=== PATIENT | male | born 1955 | race Hispanic/Latino ===

== ENCOUNTER 2019-02-06 11:15 | Emergency (ER) | payer SELFPAY ==
[2019-02-06 11:41] LABS: Protime INR 1.06
[2019-02-06 11:43] LABS: Absolute Lymphocytes (CBC) 1.5 K/uL (0.7-4.9); Absolute Monocytes 0.4 K/uL (0.1-1.3); Absolute Neutrophil 2.3 K/uL (1.8-8.0); Basophils % 0.9 % (0-1.3); Eosinophils % 1.1 % (0-4.4); Hematocrit 42.2 % (39.6-49.0); Lymphocytes % 35.4 % (15.3-44.8); MPV 8.9 fL (7.6-11.3); Monocytes % 8.2 % (3.3-12.3); RBC Red Blood Cell Count 4.82 M/uL (4.33-5.43)
--- NOTE | 2019-02-06 11:46 | RAD REPORT ---
EXAM DESCRIPTION: CT - CTHCSPWOC - 02/06/2019 11:38 am CLINICAL HISTORY: Head and neck pain, numbness and tingling, stroke-like symptoms COMPARISON: None. TECHNIQUE: Axial 5 mm thick images of the head were obtained. Axial 2 mm thick images of the cervic al spine were obtained with sagittal and coronal reconstruction images generated and reviewed. All CT scans are performed using dose optimization technique as appropriate and may include automated exposure control or mA/KV adjustment according to patient size. FINDINGS: No intracranial hemorrhage, mass, edema or acute intracranial finding. No suspicion for acute infarct ion. No extra-axial fluid collections. Mastoid air cells and paranasal sinuses are clear. No globe or orbit abnormality seen. Mild atrophy and chronic ischemic changes are evident. Ventricles are normal in size. Cervical body height and alignment are normal. C5-6 disc space narrowing is present with endplate spu rring and bilateral bony foraminal encroachment. No fracture or acute bony abnormality. Central canal detail is inherently limited. No paraspinal mass or hematoma. IMPRESSION: No acute intracranial finding identifiable. Atrophy and chronic ischemic changes are pre sent. Chronic ischemic changes can mask nonhemorrhagic acute infarction. MR brain followup can be obtained if there is ongoing concern for acute ischemia. Cervical spine degenerative changes are present most notable at C5-6. No fracture or acute finding se en.
[2019-02-06] MEDS ORDERED: NA CHLORIDE 0.9% 1,000 ML ONE (11:48)
[2019-02-06] MEDS ORDERED: FOLIC ACID 5 MG/ML VIAL ONE (11:48)
[2019-02-06] MEDS ORDERED: THIAMINE 200 MG/2 ML INJ ONE (11:53)
[2019-02-06 11:59] LABS: ALT/SGPT 24 U/L (12-78); AST/SGOT 18 U/L (15-37); Alkaline Phosphatase 78 U/L (45-117); BUN Blood Urea Nitrogen 14 mg/dL (7-18); Bicarbonate 28 mmol/L (21-32); Bilirubin Direct 0.2 mg/dL (0-0.2); Bilirubin Total 0.9 mg/dL (0.2-1.0); C-Reactive Protein < 2.90 mg/L (<3.00); Glucose Level 98 mg/dL (74-106); NT PRO-BNP 16 pg/mL (<125); Potassium 4.1 mmol/L (3.5-5.1); Protein, Total 7.4 g/dL (6.4-8.2); Sodium Level 139 mmol/L (136-145); Troponin (Emerg Dept Use Only) < 0.02 ng/mL (0.0-0.045)
--- NOTE | 2019-02-06 12:18 | RAD REPORT ---
EXAM DESCRIPTION: MRI - Brain Wo Cont - 02/06/2019 12:00 pm CLINICAL HISTORY: Left numbness/dizziness COMPARISON: CT February 06, 2019 TECHNIQUE: Axial, sagittal, and coronal magnetic images of the brain were obtained. Contrast was not requested FINDINGS: A 4.5 centimeter area of abnormal signal is present within the left cerebellum. Diffusion-weighted/ADC mapping does not reveal evidence of acute infarction. The ventricles are normal caliber. An extra-axial fluid collection is not present The sinuses and mastoids are clear. IMPRESSION: 4.5 centimeter area of abnormal signal within the left cerebellum may represent an old i nfarction.
--- NOTE | 2019-02-06 12:38 | RAD REPORT ---
EXAM DESCRIPTION: USCarotid Artery Bilateral02/06/2019 12:21 pm CLINICAL HISTORY: Numbness COMPARISON: None FINDINGS: The velocity of the right internal carotid artery equals 53 cm/sec. The right ICA/CCA rati o .8 The velocity of the left internal carotid artery equals 71 cm/sec. The left ICA/CCA ratio .9 Mild plaque is present within the carotid arteries. The vertebral arteries demonstrate antegrade flow IMPRESSION: Mild plaque within the carotid arteries without evidence of a hemodynamically significan t stenosis NASCET criteria used. Mild 0-49% stenosis Moderate 50-69% stenosis Severe 70-99% stenosis
--- NOTE | 2019-02-06 12:43 | RAD REPORT ---
EXAM DESCRIPTION: [place] Single View02/06/2019 12:32 pm CLINICAL HISTORY: cough COMPARISON: 2017 FINDINGS: The lungs appear clear of acute infiltrate. The heart is normal size IMPRESSION: No acute abnormalities displayed
--- NOTE | 2019-02-06 13:10 | ER ---
Nurse's Notes [facility] Name: Loc Serrano Jr Age: 63 yrs Sex: Male : 1955 Arrival Date: 02/06/2019 Time: 11:17 Bed 20 Private MD: Ruth Bush H Diagnosis: Radiculopathy, cervical region;Radiculopathy, lumbar region Presentation: 02/06 11:23 Presenting complaint: Patient states: INTERMITTENT LUE/LLE NUMBNESS AND ANXIETY SINCE bp Y/D, RESOLVED WITH MOVEMENT. Transition of care: patient was not received from another setting of care. Onset of symptoms was February 05, 2019. Risk Assessment: Do you want to hurt yourself or someone else? Patient reports no desire to harm self or others. Initial Sepsis Screen: Does the patient meet any 2 criteria? No. Patient's initial sepsis screen is negative. Does the patient have a suspected source of infection? No. Patient's initial sepsis screen is negative. Care prior to arrival: None. 11:23 Method Of Arrival: Ambulatory bp 11:23 Acuity: NIK 3 bp Triage Assessment: 11:25 General: Appears in no apparent distress. comfortable, slender, Behavior is bp cooperative, appropriate for age, anxious. Pain: Denies pain. EENT: No deficits noted. Neuro: Level of Consciousness is awake, alert, obeys commands, Oriented to person, place, time, situation, Appropriate for age Office Clerk are equal bilaterally Moves all extremities. Full function Gait is steady, Speech is normal, Facial symmetry appears normal, Numbness in left arm and left leg. Cardiovascular: Rhythm is sinus rhythm. Respiratory: Airway is patent Respiratory effort is even, unlabored, Respiratory pattern is regular, symmetrical. GI: No signs and/or symptoms were reported involving the gastrointestinal system. : No signs and/or symptoms were reported regarding the genitourinary system. Derm: No deficits noted. Musculoskeletal: Circulation, motion, and sensation intact. Range of motion: intact in all extremities. Historical: - Allergies: 11:25 No Known Allergies; bp - Home Meds: 11:25 None [Active]; bp - PMHx: 11:25 GERD; High Cholesterol; bp - Immunization history:: Adult Immunizations up to date. - Social history:: Smoking status: Patient/guardian denies using tobacco. - Ebola Screening: : No symptoms or risks identified at this time. - Family history:: not pertinent. Screenin:27 Abuse screen: Denies threats or abuse. Denies injuries from another. Nutritional bp screening: No deficits noted. Tuberculosis screening: No symptoms or risk factors identified. Fall Risk None identified. Assessment: 11:27 General: SEE TRIAGE NOTES. NO OBJECTIVE NEURO FINDINGS. bp 11:35 Reassessment: PT TO CT WITH BUSINESS UNIT MANAGER. bp 12:35 Reassessment: PT RETURNED FROM RADIOLOGY. bp 13:24 Reassessment: PT D/C HOME AMBULATORY WITH FAMILY, DX WITH RADICULOPATHY. bp Vital Signs: 11:25 BP 145 / 98; Pulse 71; Resp 18; Temp 97.8; Pulse Ox 99% ; Weight 89.81 kg; Height 6 ft. bp 2 in. (187.96 cm); 12:39 BP 131 / 99; Pulse 54; Resp 16; Pulse Ox 97% ; bp 13:24 BP 125 / 87; Pulse 47; Resp 11; Temp 97.8; Pulse Ox 100% ; bp 11:25 Body Mass Index 25.42 (89.81 kg, 187.96 cm) bp NIH Stroke Scale Scores: 12:03 NIHSS Score: 0 [facility] ED Course: 11:17 Patient arrived in ED. as 11:17 Ruth Bush DO is Private Physician. as 11:18 Abdi Hollingsworth, BRISEIDA is Primary Nurse. bp 11:18 Gt Das MD is Attending Physician. swetha 11:24 Triage completed. bp 11:25 Arm band placed on. bp 11:27 Patient has correct armband on for positive identification. Bed in low position. Call bp light in reach. Side rails up X2. Adult w/ patient. 11:30 Initial lab(s) drawn, by me, sent to lab. Inserted saline lock: 20 gauge in right hj antecubital area, using aseptic technique. Blood collected. 11:34 Troponin (emerg Dept Use Only) Sent. hj 11:34 PT-INR Sent. hj 11:34 NT PRO-BNP Sent. hj 11:34 Magnesium Sent. hj 11:34 LFT's Sent. hj 11:34 CBC with Diff Sent. hj 11:34 Basic Metabolic Panel Sent. hj 11:35 Sed Rate Sent. hj 11:35 CRP Sent. hj 11:35 Basic Metabolic Panel Sent. hj 11:38 CT Head C Spine In Process Unspecified. EDMS 11:45 Patient moved to MRI via wheelchair. em2 12:00 MRI completed. Patient tolerated well. Patient moved back from MRI. em2 12:21 US Carotid Artery Bilateral In Process Unspecified. EDMS 12:29 XRAY Chest (1 view) In Process Unspecified. EDMS 12:44 EKG done, by electrical service technician. reviewed by Gt Das MD. at1 13:01 Ruth Bush DO is Referral Physician. swetha 13:02 Deshaun Das MD is Referral Physician. swetha 13:25 No provider procedures requiring assistance completed. IV discontinued, intact, bp bleeding controlled, No redness/swelling at site. Pressure dressing applied. Administered Medications: 12:35 Drug: NS 0.9% 1000 ml Route: IV; Rate: 1 bolus; Site: right antecubital; bp 13:23 Follow up: IV Status: Completed infusion; IV Intake: 1000ml bp 12:35 Drug: foLIC Acid 1 mg Route: IVPB; Site: right antecubital; bp 12:35 Drug: Thiamine 100 mg Route: IV; Rate: bolus; Site: right antecubital; bp 13:15 Drug: Aspirin Chewable Tablet 324 mg Route: PO; bp 13:23 Follow up: Response: No adverse reaction bp Intake: 13:23 IV: 1000ml; Total: 1000ml. bp Outcome: 13:10 Discharge ordered by . swetha 13:25 Discharged to home ambulatory, with family. bp 13:25 Condition: stable 13:25 Discharge instructions given to patient, Instructed on discharge instructions, follow up and referral plans. medication usage, Demonstrated understanding of instructions, follow-up care, medications, Prescriptions given X 2. 13:26 Patient left the ED. bp NIH Stroke Scale - NIH Stroke Score Date: 02/06/2019 Time: 12:03 Total Score = 0 1a. Level of Consciousness (LOC) - 0(Alert) 1b. Level of Consciousness (LOC) (Year \T\ Age) - 0(Both) 1c. LOC Commands (Open \T\ Closes Eyes/Mud Mill Tender) - 0(Both) 2. Best Gaze (Lateral Gaze Paresis) - 0(Normal) 3. Visual Field Loss - 0(No visual loss) 4. Facial Palsy - 0(Normal) 5a. Left Arm: Motor (10-second hold) - 0(No drift) 5b. Right Arm: Motor (10-second hold) - 0(No drift) 6a. Left Leg: Motor (5-second hold - always test supine) - 0(No drift) 6b. Right Leg: Motor (5-second hold - always test supine) - 0(No drift) 7. Limb Ataxia (finger/nose \T\ heel/waters - test with eyes open) - 0(Absent) 8. Sensory Loss (pinprick arms/legs/face) - 0(Normal) 9. Best Language: Aphasia (description/naming/reading) - 0(No aphasia) 10. Dysarthria (speech clarity - read or repeat words) - 0(Normal) 11. Extinction and Inattention (visual/tactile/auditory/spatial/personal) - 0(No abnormality) Initials: swetha Signatures: Dispatcher [employer] EDMS Gt Das MD MD cha Martinez, Amelia as Montes, Enrique em2 Keysha Harrison, financial sales professional EKG Tat1 Ulysses Corrales, Abdi Hernandes RN, BRISEIDA RN bp Corrections: (The following items were deleted from the chart) 12:01 12:00 In radiology for Brain Wo Cont. EDMS em2
--- NOTE | 2019-02-06 13:10 | EDPHYS ---
Physician Documentation [facility] Name: Loc Serrano Jr Age: 63 yrs Sex: Male : 1955 Arrival Date: 02/06/2019 Time: 11:17 Bed 20 Private MD: Ruth Bush H ED Physician Gt Das HPI: 02/06 11:59 This 63 yrs old Male presents to ER via Ambulatory with complaints of Numbness swetha Of Arm. 11:59 The patient or guardian complains of pain, that is acute. The complaints affect the swetha left bicep, dorsal aspect of left forearm, left tricep and palmar aspect of left forearm. Historical: - Allergies: 11:25 No Known Allergies; bp - Home Meds: 11:25 None [Active]; bp - PMHx: 11:25 GERD; High Cholesterol; bp - Immunization history:: Adult Immunizations up to date. - Social history:: Smoking status: Patient/guardian denies using tobacco. - Ebola Screening: : No symptoms or risks identified at this time. - Family history:: not pertinent. ROS: 12:01 Constitutional: Negative for fever, chills, and weight loss, Eyes: Negative for injury, swetha pain, redness, and discharge, ENT: Negative for injury, pain, and discharge, Neck: Negative for injury, pain, and swelling, Cardiovascular: Negative for chest pain, palpitations, and edema, Respiratory: Negative for shortness of breath, cough, wheezing, and pleuritic chest pain, Abdomen/GI: Negative for abdominal pain, nausea, vomiting, diarrhea, and constipation, Back: Negative for injury and pain, : Negative for injury, bleeding, discharge, and swelling, Skin: Negative for injury, rash, and discoloration, Psych: Negative for depression, anxiety, suicide ideation, homicidal ideation, and hallucinations, Allergy/Immunology: Negative for hives, rash, and allergies, Endocrine: Negative for neck swelling, polydipsia, polyuria, polyphagia, and marked weight changes, Hematologic/Lymphatic: Negative for swollen nodes, abnormal bleeding, and unusual bruising. 12:01 MS/extremity: Positive for tingling, of the left arm and left leg. Exam: 12:01 Radiologist reports: nad swetha 12:01 Constitutional: This is a well developed, well nourished patient who is awake, alert, and in no acute distress. Head/Face: Normocephalic, atraumatic. Eyes: Pupils equal round and reactive to light, extra-ocular motions intact. Lids and lashes normal. Conjunctiva and sclera are non-icteric and not injected. Cornea within normal limits. Periorbital areas with no swelling, redness, or edema. ENT: Nares patent. No nasal discharge, no septal abnormalities noted. Tympanic membranes are normal and external auditory canals are clear. Oropharynx with no redness, swelling, or masses, exudates, or evidence of obstruction, uvula midline. Mucous membranes moist. Neck: Trachea midline, no thyromegaly or masses palpated, and no cervical lymphadenopathy. Supple, full range of motion without nuchal rigidity, or vertebral point tenderness. No Meningismus. Chest/axilla: Normal chest wall appearance and motion. Nontender with no deformity. No lesions are appreciated. Cardiovascular: Regular rate and rhythm with a normal S1 and S2. No gallops, murmurs, or rubs. Normal PMI, no JVD. No pulse deficits. Respiratory: Lungs have equal breath sounds bilaterally, clear to auscultation and percussion. No rales, rhonchi or wheezes noted. No increased work of breathing, no retractions or nasal flaring. Abdomen/GI: Soft, non-tender, with normal bowel sounds. No distension or tympany. No guarding or rebound. No evidence of tenderness throughout. Back: No spinal tenderness. No costovertebral tenderness. Full range of motion. Male : Normal genitalia with no discharge or lesions. Skin: Warm, dry with normal turgor. Normal color with no rashes, no lesions, and no evidence of cellulitis. MS/ Extremity: Pulses equal, no cyanosis. Neurovascular intact. Full, normal range of motion. Neuro: Awake and alert, GCS 15, oriented to person, place, time, and situation. Cranial nerves II-XII grossly intact. Motor strength 5/5 in all extremities. Sensory grossly intact. Cerebellar exam normal. Normal gait. Psych: Awake, alert, with orientation to person, place and time. Behavior, mood, and affect are within normal limits. Vital Signs: 11:25 BP 145 / 98; Pulse 71; Resp 18; Temp 97.8; Pulse Ox 99% ; Weight 89.81 kg; Height 6 ft. bp 2 in. (187.96 cm); 12:39 BP 131 / 99; Pulse 54; Resp 16; Pulse Ox 97% ; bp 13:24 BP 125 / 87; Pulse 47; Resp 11; Temp 97.8; Pulse Ox 100% ; bp 11:25 Body Mass Index 25.42 (89.81 kg, 187.96 cm) bp NIH Stroke Scale Scores: 12:03 NIHSS Score: 0 swetha MDM: 11:18 Patient medically screened. [facility] 12:03 Data reviewed: vital signs, nurses notes, lab test result(s), EKG, radiologic studies, [facility] CT scan, doppler, MRI, plain films. 02/06 11:20 Order name: Basic Metabolic Panel [facility] 02/06 11:20 Order name: CBC with Diff; Complete Time: 12:59 [facility] 02/06 11:20 Order name: LFT's; Complete Time: 12:59 [facility] 02/06 11:20 Order name: Magnesium; Complete Time: 12:59 [facility] 02/06 11:20 Order name: NT PRO-BNP; Complete Time: 12:59 [facility] 02/06 11:20 Order name: PT-INR; Complete Time: 11:47 [facility] 02/06 11:20 Order name: Troponin (emerg Dept Use Only); Complete Time: 13:00 [facility] 02/06 11:20 Order name: XRAY Chest (1 view); Complete Time: 13:00 [facility] 02/06 11:20 Order name: CT Head C Spine; Complete Time: 11:47 [facility] 02/06 11:20 Order name: CRP; Complete Time: 13:00 [facility] 02/06 11:20 Order name: Sed Rate; Complete Time: 13:00 [facility] 02/06 11:21 Order name: Basic Metabolic Panel; Complete Time: 12:59 EDME 02/06 11:35 Order name: US Carotid Artery Bilateral; Complete Time: 13:00 [facility] 02/06 11:20 Order name: EKG; Complete Time: 11:21 [facility] 02/06 11:20 Order name: Cardiac monitoring; Complete Time: 11:23 [facility] 02/06 11:20 Order name: EKG - Nurse/Tech; Complete Time: 12:41 [facility] 02/06 11:20 Order name: IV Saline Lock; Complete Time: 11:31 [facility] 02/06 11:20 Order name: Labs collected and sent; Complete Time: 11: [facility] 02/06 11:20 Order name: O2 Per Protocol; Complete Time: 11: [facility] 02/06 11:20 Order name: O2 Sat Monitoring; Complete Time: 11: [facility] 02/06 11:20 Order name: Urine Dipstick-Ancillary (obtain specimen); Complete Time: 13:10 [facility] 02/06 11:59 Order name: Brain Wo Cont; Complete Time: 13:00 EDMS Administered Medications: 12:35 Drug: NS 0.9% 1000 ml Route: IV; Rate: 1 bolus; Site: right antecubital; bp 13:23 Follow up: IV Status: Completed infusion; IV Intake: 1000ml bp 12:35 Drug: foLIC Acid 1 mg Route: IVPB; Site: right antecubital; bp 12:35 Drug: Thiamine 100 mg Route: IV; Rate: bolus; Site: right antecubital; bp 13:15 Drug: Aspirin Chewable Tablet 324 mg Route: PO; bp 13:23 Follow up: Response: No adverse reaction bp Disposition: 02/06/19 13:10 Discharged to Home. Impression: Radiculopathy, cervical region, Radiculopathy, lumbar region. - Condition is Stable. - Discharge Instructions: Cervical Radiculopathy, Lumbosacral Radiculopathy, Aspirin and Your Heart, Cervical Radiculopathy, [id number], Radicular Pain. - Prescriptions for Folic Acid 1 mg Oral Tablet - take 1 tablet by ORAL route once daily; 30 tablet. - Medication Reconciliation Form, Thank You Letter, Antibiotic Education, Prescription Opioid Use form. - Follow up: Ruth Bush DO; When: 2 - 3 days; Reason: Recheck today's complaints, Continuance of care, Re-evaluation by your physician. Follow up: Deshaun Das MD; When: 2 - 3 days; Reason: Recheck today's complaints, Continuance of care, Re-evaluation by your physician. - Problem is new. - Symptoms have improved. NIH Stroke Scale - NIH Stroke Score Date: 02/06/2019 Time: 12:03 Total Score = 0 1a. Level of Consciousness (LOC) - 0(Alert) 1b. Level of Consciousness (LOC) (Year \T\ Age) - 0(Both) 1c. LOC Commands (Open \T\ Closes Eyes/Paste Plant Supervisor) - 0(Both) 2. Best Gaze (Lateral Gaze Paresis) - 0(Normal) 3. Visual Field Loss - 0(No visual loss) 4. Facial Palsy - 0(Normal) 5a. Left Arm: Motor (10-second hold) - 0(No drift) 5b. Right Arm: Motor (10-second hold) - 0(No drift) 6a. Left Leg: Motor (5-second hold - always test supine) - 0(No drift) 6b. Right Leg: Motor (5-second hold - always test supine) - 0(No drift) 7. Limb Ataxia (finger/nose \T\ heel/waters - test with eyes open) - 0(Absent) 8. Sensory Loss (pinprick arms/legs/face) - 0(Normal) 9. Best Language: Aphasia (description/naming/reading) - 0(No aphasia) 10. Dysarthria (speech clarity - read or repeat words) - 0(Normal) 11. Extinction and Inattention (visual/tactile/auditory/spatial/personal) - 0(No abnormality) Initials: swetha Signatures: Dispatcher [employer] [facility] Gt Das MD MD cha Peltier, Brian, RN RN bp Corrections: (The following items were deleted from the chart) 11:59 11:36 MR STROKE PROTOCOL+MRI.RAD.MINISTERIO ordered. [facility] 13:26 13:10 02/06/2019 13:10 Discharged to Home. Impression: Radiculopathy, cervical bp region; Radiculopathy, lumbar region. Condition is Stable. Forms are Medication Reconciliation Form, Thank You Letter, Antibiotic Education, Prescription Opioid Use. Follow up: Ruth Bush; When: 2 - 3 days; Reason: Recheck today's complaints, Continuance of care, Re-evaluation by your physician. Follow up: Deshaun Das; When: 2 - 3 days; Reason: Recheck today's complaints, Continuance of care, Re-evaluation by your physician. Problem is new. Symptoms have improved. swetha
[2019-02-06] MEDS ORDERED: ASPIRIN 81 MG CHEWABLE TABLET ONE (13:25)
--- NOTE | 2019-02-06 18:24 | EKG ---
Test Date: 2019-02-06 Test Time: 12:44:09 Safety Pin Assembling Machine Operator: IVETTE MEASUREMENT RESULTS: Intervals: Rate: 50 WI: 158 QRSD: 114 QT: 428 QTc: 390 [place]: P: 57 WI: 158 QRS: 50 T: 51 INTERPRETIVE STATEMENTS: Sinus bradycardia Otherwise normal ECG Compared to ECG 06/03/2017 05:22:28 Sinus rhythm no longer present Electronically Signed On 02-06-19 18:23:23 CDT by Scout Teresa
== END 2019-02-06 13:26 | disposition home or self-care (01) ==
LOC: ER 11:15
DX: M54.12 Radiculopathy, cervical region (principal); M54.16 Radiculopathy, lumbar region
CPT/HCPCS: 36415; 70450; 70551; 71045; 72125; 80048; 80076; 83735; 83880; 84484; 85025; 85610; 85652; 86140; 93005; 93880; 96361; 96374; 96375; 99285; J3411; J7030

== ENCOUNTER 2019-11-10 10:54 | Emergency (ER) | payer SELFPAY ==
[2019-11-10 11:43] LABS: Absolute Lymphocytes (CBC) 1.4 K/uL (0.7-4.9); Basophils % 0.7 % (0-1.3); Hematocrit 41.1 % (39.6-49.0); Lymphocytes % 31.4 % (15.3-44.8); MPV 8.7 fL (7.6-11.3); RBC Red Blood Cell Count 4.56 M/uL (4.33-5.43)
[2019-11-10 11:47] LABS: Protime INR 0.94
--- NOTE | 2019-11-10 12:15 | RAD REPORT ---
EXAM DESCRIPTION: CT - Head C Spine Mpr Wo Con - 11/10/2019 11:45 am CLINICAL HISTORY: Numbness COMPARISON: January 2019 TECHNIQUE: Computed axial tomography of the head and cervical spine was obtained. Sagittal and coronal reconstruction was performed. All CT scans are performed using dose optimization technique as appropriate and may include automated exposure control or mA/KV adjustment according to patient size. FINDINGS: An intracranial bleed is not seen. The ventricles are normal in caliber. An extra-axial fl uid collection is not noted.Fluid within the visualized sinuses and mastoids is not seen A cervical fracture is not visualized. No dislocation is noted. Spondylosis C5-6 results in moderate left foraminal stenosis IMPRESSION: No acute intracranial abnormality is seen. A cervical fracture is not visualized. Spondylosis C5-6 results in moderate left foraminal stenosis If the patient continues to have symptoms to suggest intracranial /spinal cord pathology then MRI wou ld be recommended
--- NOTE | 2019-11-10 12:56 | RAD REPORT ---
EXAM DESCRIPTION: [facility] Single View11/10/2019 12:10 pm CLINICAL HISTORY: Numbness COMPARISON: January 2019 FINDINGS: The lungs appear clear of acute infiltrate. The heart is normal size IMPRESSION: No acute abnormalities displayed
[2019-11-10 13:01] LABS: ALT/SGPT 35 U/L (12-78); AST/SGOT 31 U/L (15-37); Albumin 3.5 g/dL (3.4-5.0); Alkaline Phosphatase 66 U/L (45-117); BUN Blood Urea Nitrogen 17 mg/dL (7-18); Bicarbonate 25 mmol/L (21-32); Bilirubin Direct < 0.1 mg/dL (0-0.2); Bilirubin Total 0.3 mg/dL (0.2-1.0); Glucose Level 92 mg/dL (74-106); NT PRO-BNP 25 pg/mL (<125); Potassium 4.1 mmol/L (3.5-5.1); Protein, Total 6.6 g/dL (6.4-8.2); Sodium Level 139 mmol/L (136-145); Troponin (Emerg Dept Use Only) < 0.02 ng/mL (0.0-0.045)
--- NOTE | 2019-11-10 13:16 | EDPHYS ---
Physician Documentation [facility] Name: Loc Serrano Jr Age: 64 yrs Sex: Male : 1955 Arrival Date: 11/10/2019 Time: 10:55 Bed 7 Private MD: ED Physician Sathya Red HPI: 11/10 11:49 This 64 yrs old Male presents to ER via Ambulatory with complaints of Numbness.pm1 11:49 The patient's problem is reported as paresthesias, in left upper extremity, in left pm1 lower extremity, in left side of face. Onset: The symptoms/episode began/occurred 1 month(s) ago. Duration: The episodes are intermittent. The symptoms are alleviated by movement and working. The symptoms are aggravated by rest and when he is not working. Associated signs and symptoms: Pertinent positives: Yesterday with bilateral blurred vision that lasted for 1 second, Pertinent negatives: chest pain, dizziness, headache, shortness of breath. Severity of symptoms: in the emergency department the symptoms have resolved Pain is currently a 0 / 10. Dr. Kenny about 1 month ago . Historical: - Allergies: 10:56 No Known Allergies; iw - Home Meds: 10:56 aspirin 81 mg Oral chew 1 tab once daily [Active]; Vitamin B-12 Oral [Active]; iw atorvastatin 20 mg oral tab 1 tab once daily [Active]; Fish Oil oral oral [Active]; - PMHx: 10:56 GERD; High Cholesterol; iw - PSHx: 10:56 None; iw - Immunization history:: Adult Immunizations not up to date. - Coronavirus screen:: The patient has NOT traveled to [place], [place], or [place] in the past 14 days. Proceed with normal triage process as indicated. - Social history:: Smoking status: Patient denies any tobacco usage or history of. - Ebola Screening: : Patient negative for fever greater than or equal to 101.5 degrees Fahrenheit, and additional compatible Ebola Virus Disease symptoms Patient denies exposure to infectious person Patient denies travel to an Ebola-affected area in the 21 days before illness onset No symptoms or risks identified at this time. ROS: 11:49 Constitutional: Negative for fever, chills, and weight loss. pm1 11:49 ENT: Negative for injury, pain, and discharge, Neck: Negative for injury, pain, and swelling, Cardiovascular: Negative for chest pain, palpitations, and edema, Respiratory: Negative for shortness of breath, cough, wheezing, and pleuritic chest pain, Abdomen/GI: Negative for abdominal pain, nausea, vomiting, diarrhea, and constipation, Back: Negative for injury and pain, MS/Extremity: Negative for injury and deformity, Skin: Negative for injury, rash, and discoloration. 11:49 Eyes: Positive for blurry vision, both eyes that lasted for 1 second, Negative for discharge, pain, redness, tearing. 11:49 Neuro: Positive for intermittent numbness and tingling to left arm, left leg, left side of face for 1 month, Negative for dizziness, gait disturbance, headache. Exam: 11:49 Constitutional: This is a well developed, well nourished patient who is awake, alert, pm1 and in no acute distress. Head/Face: Normocephalic, atraumatic. Eyes: Pupils equal round and reactive to light, extra-ocular motions intact. Lids and lashes normal. Conjunctiva and sclera are non-icteric and not injected. Cornea within normal limits. Periorbital areas with no swelling, redness, or edema. ENT: Nares patent. No nasal discharge, no septal abnormalities noted. Tympanic membranes are normal and external auditory canals are clear. Oropharynx with no redness, swelling, or masses, exudates, or evidence of obstruction, uvula midline. Mucous membranes moist. Neck: Trachea midline, no thyromegaly or masses palpated, and no cervical lymphadenopathy. Supple, full range of motion without nuchal rigidity, or vertebral point tenderness. No Meningismus. Chest/axilla: Normal chest wall appearance and motion. Nontender with no deformity. No lesions are appreciated. Cardiovascular: Regular rate and rhythm with a normal S1 and S2. No gallops, murmurs, or rubs. No pulse deficits. Respiratory: Lungs have equal breath sounds bilaterally, clear to auscultation and percussion. No rales, rhonchi or wheezes noted. No increased work of breathing, no retractions or nasal flaring. Abdomen/GI: Soft, non-tender, with normal bowel sounds. No distension or tympany. No guarding or rebound. No evidence of tenderness throughout. Back: No spinal tenderness. No costovertebral tenderness. Full range of motion. Skin: Warm, dry with normal turgor. Normal color with no rashes, no lesions, and no evidence of cellulitis. MS/ Extremity: Pulses equal, no cyanosis. Neurovascular intact. Full, normal range of motion. 11:49 Neuro: Orientation: is normal, Mentation: is normal, Memory: is normal, Cranial nerves: CN II- XII are normal as tested, Cerebellar function: normal finger to nose testing, Motor: moves all fours, strength is normal, strength is 5/5 in all extremities, Sensation: is normal, no obvious gross deficits, Gait: is steady, at a normal pace, without difficulty, Abnormal movements: there are no abnormal movements. 12:52 Radiologist reports: No acute intracranial abnormality. 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 2 in. (187.96 cm); 11:38 BP 119 / 73; Pulse 60; Resp 17; Pulse Ox 100% ; hb 12:36 BP 106 / 80; Pulse 60; Resp 17; Pulse Ox 100% ; bp 13:46 BP 111 / 98; Pulse 56; Resp 14; Temp 98; Pulse Ox 100% ; bp 10:56 Body Mass Index 24.14 (85.28 kg, 187.96 cm) iw MDM: 11:16 Patient medically screened. pm1 13:14 Data reviewed: vital signs. Data interpreted: Pulse oximetry: on room air is 100 %. pm1 Interpretation: normal. 13:15 Counseling: I had a detailed discussion with the patient and/or guardian regarding: the pm1 historical points, exam findings, and any diagnostic results supporting the discharge/admit diagnosis, lab results, radiology results, the need for outpatient follow up, to return to the emergency department if symptoms worsen or persist or if there are any questions or concerns that arise at home. 13:29 ED course: Discussed follow up with PCP/Neurology/Neurosurgery for MRI neck and lower pm1 back, and further treatment and evaluation. 11/10 11:18 Order name: Basic Metabolic Panel; Complete Time: 13:13 pm1 11/10 11:18 Order name: CBC with Diff; Complete Time: 12:18 pm1 02/08 11:18 Order name: LFT's; Complete Time: 13:13 pm11/10 11:18 Order name: Magnesium; Complete Time: 13:13 pm11/10 11:18 Order name: NT PRO-BNP; Complete Time: 13:13 pm11/10 11:18 Order name: PT-INR; Complete Time: 12:18 pm11/10 11:18 Order name: Troponin (emerg Dept Use Only); Complete Time: 13:13 pm11/10 11:18 Order name: XRAY Chest (1 view); Complete Time: 13:13 pm1 11/10 11:18 Order name: EKG; Complete Time: 11:20 pm11/10 11:18 Order name: Cardiac monitoring; Complete Time: 11:21 pm11/10 11:18 Order name: EKG - Nurse/Tech; Complete Time: 11:37 pm11/10 11:18 Order name: IV Saline Lock; Complete Time: 11:37 pm11/10 11:18 Order name: Labs collected and sent; Complete Time: 11:37 pm11/10 11:19 Order name: CT Head C Spine; Complete Time: 12:51 pm11/10 11:18 Order name: O2 Per Protocol; Complete Time: 11:22 pm11/10 11:18 Order name: O2 Sat Monitoring; Complete Time: 11:21 pm11/10 11:47 Order name: Labs - recollect needed: chemistries recollect; Complete Time: 12:31 eb Administered Medications: No medications were administered Disposition: 14:16 Co-signature as Attending Physician, Sathya Red MD. rn Disposition: 11/10/19 13:15 Discharged to Home. Impression: Radiculopathy, cervical region. - Condition is Stable. - Discharge Instructions: Cervical Radiculopathy, Paresthesia. - Medication Reconciliation Form, Thank You Letter, Antibiotic Education, Prescription Opioid Use form. - Follow up: Emergency Department; When: As needed; Reason: Worsening of condition. Follow up: Private Physician; When: 2 - 3 days; Reason: Recheck today's complaints, Continuance of care, Re-evaluation by your physician. - Problem is new. - Symptoms have improved. Signatures: Dispatcher [employer] Camelia Lucero, RN RN Sathya Giron MD MD rn Marinas, Patrick, WOOD ROUTER WOOD ROUTER pm1 Abdi Hollingsworth, RN RN Delma Knight Corrections: (The following items were deleted from the chart) 13:59 13:15 11/10/2019 13:15 Discharged to Home. Impression: Radiculopathy, cervical region. bp Condition is Stable. Forms are Medication Reconciliation Form, Thank You Letter, Antibiotic Education, Prescription Opioid Use. Follow up: Emergency Department; When: As needed; Reason: Worsening of condition. Follow up: Private Physician; When: 2 - 3 days; Reason: Recheck today's complaints, Continuance of care, Re-evaluation by your physician. Problem is new. Symptoms have improved. pm1
--- NOTE | 2019-11-10 13:16 | ER ---
Nurse's Notes [facility] Name: Loc Serrano Jr Age: 64 yrs Sex: Male : 1955 Arrival Date: 11/10/2019 Time: 10:55 Bed 7 Private MD: Diagnosis: Radiculopathy, cervical region Presentation: 11/10 10:54 Presenting complaint: Patient states: has been having intermittent burning/numbness to iw left side of face and left arm for a bout a month, it got worse yesterday, also had trouble seeing out of his left eye yesterday but is better now, denies weakness. Transition of care: patient was not received from another setting of care. Onset of symptoms was October 2019. Risk Assessment: Do you want to hurt yourself or someone else? Patient reports no desire to harm self or others. Initial Sepsis Screen: Does the patient meet any 2 criteria? No. Patient's initial sepsis screen is negative. Does the patient have a suspected source of infection? No. Patient's initial sepsis screen is negative. Care prior to arrival: None. 10:54 Method Of Arrival: Ambulatory iw 10:54 Acuity: NIK 3 iw Triage Assessment: 11:11 General: Appears in no apparent distress. comfortable, Behavior is cooperative, bp appropriate for age, anxious. Pain: Denies pain. EENT: No deficits noted. Neuro: Reports numbness in LEFT FACE. Cardiovascular: No deficits noted. Respiratory: No deficits noted. GI: No signs and/or symptoms were reported involving the gastrointestinal system. : No signs and/or symptoms were reported regarding the genitourinary system. Derm: No deficits noted. Musculoskeletal: No deficits noted. Historical: - Allergies: 10:56 No Known Allergies; iw - Home Meds: 10:56 aspirin 81 mg Oral chew 1 tab once daily [Active]; Vitamin B-12 Oral [Active]; iw atorvastatin 20 mg oral tab 1 tab once daily [Active]; Fish Oil oral oral [Active]; - PMHx: 10:56 GERD; High Cholesterol; iw - PSHx: 10:56 None; iw - Immunization history:: Adult Immunizations not up to date. - Coronavirus screen:: The patient has NOT traveled to [place], [place], or [place] in the past 14 days. Proceed with normal triage process as indicated. - Social history:: Smoking status: Patient denies any tobacco usage or history of. - Ebola Screening: : Patient negative for fever greater than or equal to 101.5 degrees Fahrenheit, and additional compatible Ebola Virus Disease symptoms Patient denies exposure to infectious person Patient denies travel to an Ebola-affected area in the 21 days before illness onset No symptoms or risks identified at this time. Screenin:12 Abuse screen: Denies threats or abuse. Denies injuries from another. Nutritional bp screening: No deficits noted. Tuberculosis screening: No symptoms or risk factors identified. Fall Risk None identified. Assessment: 11:12 General: SEE TRIAGE NOTE. bp 11:37 Reassessment: PT TO CT WITH RECREATION FACILITY ATTENDANT. hb 12:36 Reassessment: LABS RECOLLECTED AND SENT. PT CONTINUES TO C/O SUBJECTIVE NEURO S/S. bp 13:46 Reassessment: VS STABLE. ALL CURRENT ORDERS COMPLETED. NO OBJECTIVE FINDINGS. bp 13:58 Reassessment: PT D/C HOME AMBULATORY, DX WITH CERVICAL RADICULOPATHY. bp Vital Signs: 10:56 BP 139 / 96; Pulse 61; Resp 16; Temp 97.8; Pulse Ox 100% on R/A; Weight 85.28 kg; iw Height 6 ft. 2 in. (187.96 cm); 11:38 BP 119 / 73; Pulse 60; Resp 17; Pulse Ox 100% ; hb 12:36 BP 106 / 80; Pulse 60; Resp 17; Pulse Ox 100% ; bp 13:46 BP 111 / 98; Pulse 56; Resp 14; Temp 98; Pulse Ox 100% ; bp 10:56 Body Mass Index 24.14 (85.28 kg, 187.96 cm) iw ED Course: 10:55 Patient arrived in ED. as 10:55 Triage completed. iw 10:56 Arm band placed on. iw 11:07 Damien Martinez NP is PHCP. pm1 11:07 Sathya Red MD is Attending Physician. pm1 11:07 Abdi Hollingsworth, BRISEIDA is Primary Nurse. bp 11:12 Patient has correct armband on for positive identification. Bed in low position. Call bp light in reach. Side rails up X2. 11:37 Initial lab(s) drawn, by me, sent to lab. EKG done, by ED staff, reviewed by Sathya Red MD. Inserted saline lock: 20 gauge in right forearm, using aseptic technique. Blood collected. 11:46 CT Head C Spine In Process Unspecified. EDMS 12:11 XRAY Chest (1 view) In Process Unspecified. EDMS 13:58 No provider procedures requiring assistance completed. IV discontinued, intact, bp bleeding controlled, No redness/swelling at site. Pressure dressing applied. Administered Medications: No medications were administered Outcome: 13:15 Discharge ordered by MD. pm1 13:58 Discharged to home ambulatory. bp 13:58 Condition: stable 13:58 Discharge instructions given to patient, Instructed on discharge instructions, follow up and referral plans. Demonstrated understanding of instructions, follow-up care. 13:59 Patient left the ED. bp Signatures: Dispatcher [employer] Diann Long Irene, BRISEIDA RN Isela Antonio ms, Patrick, LUKE CRAFT SUPERINTENDENT pm1 Mana Borjas, BRISEIDA RN Abdi Rodriguez RN RN bp
[2019-11-10 14:10] VITALS: O2SAT 100
[2019-11-10 14:14] VITALS: BP 111/98; TEMP 98
--- NOTE | 2019-11-11 06:26 | EKG ---
Test Date: 2019-11-10 Test Time: 11:37:30 Fish And Wildlife Warden: TK MEASUREMENT RESULTS: Intervals: Rate: 56 ND: 158 QRSD: 110 QT: 402 QTc: 387 [place]: P: 64 ND: 158 QRS: 68 T: 72 INTERPRETIVE STATEMENTS: Sinus bradycardia Otherwise normal ECG Compared to ECG 02/06/2019 12:44:09 No significant changes Electronically Signed On 11-11-19 06:25:45 MONUMENT SETTER HELPER by Christian Doan
== END 2019-11-10 13:59 | disposition home or self-care (01) ==
LOC: ER 10:54
DX: M54.12 Radiculopathy, cervical region (principal); E78.00 Pure hypercholesterolemia, unspecified; Z79.82 Long term (current) use of aspirin
CPT/HCPCS: 36415; 70450; 71045; 72125; 80048; 80076; 83735; 83880; 84484; 85025; 85610; 93005; 99284